=== PATIENT | female | born 1950 | race Caucasian/White ===

== ENCOUNTER 2016-09-08 13:16 | Emergency (ER) | payer OTHER ==
[~2016-09-08] VITALS: Ht 149.9 cm; Wt 48.6 kg
[~2016-09-08 13:16] MED LIST: ALPR0.5T; ATEN-60; NOR7.5T; PAXIL
[2016-09-08 14:06] LABS: Basophils # (auto) 0.1 uL; Basophils % (auto) 1.2 % (0.0-2.0); CONDITION Y; Eosinophils # (auto) 0.1 uL; Eosinophils % (auto) 0.6 % (0.0-7.0); Hematocrit 48.6 % (36.0-46.0); Hemoglobin 16.8 g/dL (12.2-16.2); Lymphocytes # (auto) 2.2 uL; Lymphocytes % (auto) 22.4 % (10.0-50.0); Mean Corpuscular Hemoglobin 31.1 pg (28.0-32.0); Mean Corpuscular Hgb Conc. 34.5 g/dL (32.0-36.0); Mean Corpuscular Volume 90.1 fL (80.0-100.0); Mean Platelet Volume 7.8 fL (7.4-10.4); Monocytes # (auto) 0.4 uL; Monocytes % (auto) 3.6 % (0.0-12.0); Neutrophils # (auto) 7.1 uL; Neutrophils % (auto) 72.2 % (37.0-80.0); Platelet Count (auto) 227 10^3/uL (140-450); Red Cell Distribution Width 13.6 % (11.6-16.0); White Blood Cell 9.8 10^3/uL (4.4-10.8)
[2016-09-08 14:25] LABS: Potassium 4.3 mmol/L (3.5-5.1)
[2016-09-08 15:06] LABS: Albumin 3.7 g/dL (3.4-5.0); BUN/Creatinine Ratio 20.5; Calcium 8.8 mg/dL (8.5-10.1)
[2016-09-08 15:10] LABS: Bilirubin, Total 0.6 mg/dL (0.2-1.0); Total Protein 7.3 g/dL (6.4-8.2)
[2016-09-08] MEDS ORDERED: SODIUM CHLORIDE 0.9% 500 ML IVB ONE (17:20)
[2016-09-08] MEDS ORDERED: PANTOPRAZOLE SODIUM 40 MG/10 ML VIAL IV STA (17:20)
[2016-09-08] MEDS ORDERED: MORPHINE SULFATE 4 MG/ML SYRG IV ONE (17:30)
[2016-09-08] MEDS ORDERED: ONDANSETRON HCL 4 MG/2 ML VIAL IV ONE (17:30)
[2016-09-08 18:04] LABS: Magnesium 2.4 mg/dL (1.6-2.6)
[2016-09-08 18:20] LABS: INR 1.02 (0.9-1.15); Prothrombin Time 11.1 sec (9.37-12.3)
[2016-09-08 18:22] VITALS: BP 139/59
[2016-09-08] MEDS ORDERED: ALUM & MAG HYDROX-SIMETH LIQ(MAALOX) 30 ML PO ONE (19:00)
[2016-09-08] MEDS ORDERED: NALBUPHINE HCL 10 MG/1ml INJECTION IV ONE (19:00)
[2016-09-08 20:08] LABS: Urine Bilirubin Negative (Negative); Urine Blood Negative /uL (Negative); Urine Color Yellow (Yellow); Urine Glucose Normal (Normal); Urine Mucus FEW (None Seen); Urine Nitrite Negative (Negative); Urine RBC 2 /hpf (0 - 4); Urine Squamous Epithelial Cell FEW /hpf (<5)
[2016-09-08 20:13] LABS: Urine Ketone 1+ (Negative)
== END 2016-09-08 20:00 | disposition home or self-care (01) ==
LOC: ER 13:16
DX: K27.3 Acute peptic ulcer, site unspecified, without hemorrhage or perforation (principal); F17.210 Nicotine dependence, cigarettes, uncomplicated; Z90.710 Acquired absence of both cervix and uterus; Z90.89 Acquired absence of other organs; Z88.0 Allergy status to penicillin; Z91.041 Radiographic dye allergy status
CPT/HCPCS: 36415; 74176; 80053; 81001; 82150; 83690; 83735; 85025; 85610; 85730; 93005; 94761; 96361; 96374; 96375; 99285; C9113; J2270; J2300; J2405; J7030

== ENCOUNTER 2017-07-13 07:18 | Emergency (ER) | payer OTHER ==
[~2017-07-13] VITALS: Ht 149.9 cm; Wt 49.4 kg
[2017-07-13 07:41] LABS: Basophils # (auto) 0.1 uL; Basophils % (auto) 0.9 % (0.0-2.0); Eosinophils # (auto) 0.2 uL; Eosinophils % (auto) 1.9 % (0.0-7.0); Hematocrit 48.8 % (36.0-46.0); Hemoglobin 16.6 g/dL (12.2-16.2); Lymphocytes # (auto) 1.3 uL; Lymphocytes % (auto) 14.7 % (10.0-50.0); Mean Corpuscular Hemoglobin 31.8 pg (28.0-32.0); Mean Corpuscular Hgb Conc. 34.1 g/dL (32.0-36.0); Mean Corpuscular Volume 93.2 fL (80.0-100.0); Monocytes # (auto) 0.5 uL; Neutrophils % (auto) 77.5 % (37.0-80.0); Nucleated Red Blood Cells % 0.1 %; Platelet Count (auto) 164 10^3/uL (140-450); Red Blood Cells 5.24 10^6/uL (4.0-5.20); Red Cell Distribution Width 13.4 % (11.8-14.3)
[2017-07-13 08:05] LABS: Alanine Aminotransferase 13 U/L (13-56); Albumin 3.6 g/dL (3.4-5.0); Amylase 27 U/L (25-115); Anion Gap 11 (5-15); Aspartate Aminotransferase 9 U/L (15-37); BUN/Creatinine Ratio 15.8; Blood Urea Nitrogen 12 mg/dL (7-18); Calcium 9.1 mg/dL (8.5-10.1); Carbon Dioxide 26 mmol/L (21-32); Chloride 107 mmol/L (98-107); GFR African American 98 mL/min; GFR Non-African American 81 mL/min; Glucose 114 mg/dL (74-106); Lipase 159 U/L (73-393); Magnesium 2.4 mg/dL (1.6-2.6); Potassium 4.2 mmol/L (3.5-5.1); Sodium 144 mmol/L (136-145)
[2017-07-13 08:10] LABS: Alkaline Phosphatase 100 U/L (45-117); Bilirubin, Total 0.3 mg/dL (0.2-1.0); Total Protein 7.1 g/dL (6.4-8.2)
[2017-07-13] MEDS ORDERED: DONNATAL 5ml ORAL Elix (BELLADONNA ALK-PHENOBARB) PO ONE (08:15)
[2017-07-13] MEDS ORDERED: ALUM & MAG HYDROX-SIMETH LIQ(MAALOX) 30 ML PO ONE (08:15)
[2017-07-13] MEDS ORDERED: LIDOCAINE VISCOUS 2% 15ML UD PO ONE (08:15)
[2017-07-13 09:23] LABS: Urine Bacteria FEW /hpf (None Seen); Urine Blood Negative /uL (Negative); Urine Specific Gravity 1.004 (1.001-1.035); Urine WBC 11 /hpf (0 - 5)
[2017-07-13 09:52] VITALS: BP 140/80
== END 2017-07-13 11:29 | disposition home or self-care (01) ==
LOC: ER 07:18 → EDBD 07:18 → ER 11:29
DX: N39.0 Urinary tract infection, site not specified (principal); R91.1 Solitary pulmonary nodule; I10 Essential (primary) hypertension; F17.210 Nicotine dependence, cigarettes, uncomplicated; Z87.11 Personal history of peptic ulcer disease; Z88.0 Allergy status to penicillin; Z90.710 Acquired absence of both cervix and uterus
CPT/HCPCS: 36415; 74176; 80053; 81001; 82150; 83690; 83735; 84484; 85025; 86677; 93005

== ENCOUNTER 2025-01-09 11:32 | Outpatient (CLI) | payer OTHER ==
[2025-01-09 12:16] LABS: Hematocrit 40.0 % (36.0-46.0); Hemoglobin 13.5 g/dL (12.2-16.2); Mean Corpuscular Hemoglobin 30.6 pg (28.0-32.0); Mean Corpuscular Volume 90.9 fL (80.0-100.0); Nucleated Red Blood Cells % 0.1 %
[2025-01-09 12:34] LABS: Urine Protein, UAD Negative (Negative)
[2025-01-09 12:39] LABS: Alanine Aminotransferase 14 U/L (7-40); Albumin 4.1 g/dL (3.2-4.8); Alkaline Phosphatase 115 U/L (46-116); Anion Gap 9 (5-15); BUN/Creatinine Ratio 18.9 (10.0-20.0); Blood Urea Nitrogen 18 mg/dL (9-23); Calcium 9.1 mg/dL (8.7-10.4); Chloride 103 mmol/L (98-107); Glucose 94 mg/dL (74-106); Potassium 4.3 mmol/L (3.5-5.1); Sodium 143 mmol/L (136-145); Total Protein 6.8 g/dL (5.7-8.2)
[2025-01-09 12:40] LABS: Bilirubin, Total 0.2 mg/dL (0.2-1.0); Carbon Dioxide 31 mmol/L (20-31); Cholesterol 161 mg/dL (< 200); HDL Cholesterol 48 mg/dL (40-59); Triglycerides 180 mg/dL (< 150)
== END 2025-01-09 17:00 | disposition home or self-care (01) ==
LOC: LAB 11:32
PROVIDERS: ATTEND Internal Medicine Hematology & Oncology
DX: I16.0 Hypertensive urgency (principal)
CPT/HCPCS: 36415; 80053; 80061; 81001; 82306; 83036; 84443; 85025; 86141